=== PATIENT | female | born 2000 | race Caucasian/White ===

== ENCOUNTER 2021-06-12 17:36 | Emergency (ER) | payer OTHER ==
[2021-06-12] MEDS ORDERED: Zofran 4 MG/2 ML VIAL IV ONE (19:42)
[2021-06-12] MEDS ORDERED: Sodium Chloride 0.9% 1000 ML 0 ML ONE (19:58)
[2021-06-12] MEDS ORDERED: Zofran 4 MG/2 ML VIAL ONE (19:58)
[2021-06-12] MEDS ORDERED: Dextrose 5% -0.45 NaCl 1000 ML 1,000 ML IV SCH (20:00)
[2021-06-12] MEDS ORDERED: Dextrose 5% -0.45 NaCl 1000 ML 1,000 ML IV ONE (20:02)
[2021-06-12 20:32] LABS: Appearance CLOUDY (CLEAR); Bacteria FEW /HPF (NEGATIVE); Bilirubin NEGATIVE (NEGATIVE); Blood NEGATIVE Ery/ul (0-5); Epithelial Cells MANY /HPF (FEW); Glucose NEGATIVE (NEGATIVE); Ketones MODERATE (NEGATIVE); Leukocyte Esterase SMALL (NEGATIVE); Mucus MODERATE /HPF (NEGATIVE); Nitrite NEGATIVE (NEGATIVE); Protein,Urine Dip 30 (Negative); Specific Gravity 1.025 (1.005-1.025); Urobilinogen NEGATIVE mg/dL (0-1); WBC 26-50 /HPF (0-5)
[2021-06-12 20:34] LABS: Basophil (Absolute #) 0.01 (0-0.4); Eosinophil (Absolute #) 0 (0-0.5); Hematocrit 36.7 % (35-47); Hemoglobin 12.4 gm/dl (12.0-16.0); Lymphocyte (Absolute #) 0.71 (1.0-4.6); Lymphocytes % 6.1 % (24.0-44.0); Mean Cell Volume 89.1 fl (78-100); Mean Corpuscular Hemoglobin 30.1 pg (26-32); Mean Corpuscular Hgb Concent. 33.8 g/dl (32-36); Mean Platelet Volume 10.1 fl (7.5-11.0); Monocyte (Absolute #) 0.45 (0.0-1.3); Monocytes % 3.9 % (0.0-12.0); Neutrophil % 89.9 % (36.0-66.0); Platelet Count 235 K/mm3 (150-450); Red Blood Count 4.12 M/mm3 (4.1-5.4); Red Cell Distribution Width 13.4 % (11.5-14.0); White Blood Count 11.6 K/mm3 (4.0-10.5)
[2021-06-12 20:49] LABS: ALBUMIN 3.8 g/dL (3.5-5.0); ALKALINE PHOSPHATASE 75 U/L (38-126); ANION GAP 13.9 MEQ/L (5-15); BLOOD UREA NITROGEN 11 mg/dL (7-17); CHLORIDE 103 mmol/L (98-107); Calcium 8.6 mg/dL (8.4-10.2); Carbon Dioxide 20 mmol/L (22-30); Creatinine 1 0.54 mg/dL (0.52-1.04); EST GLOMERULAR FILTRATION RATE > 60.0 ML/MIN; Glucose 81 mg/dL (74-106); SGOT/AST 21 U/L (14-36); SGPT/ALT 14 U/L (0-35); SODIUM 133 mmol/L (137-145); Total Protein 6.6 g/dL (6.3-8.2)
[2021-06-12] MEDS ORDERED: Macrobid 100MG Capsule PO ONE (21:07)
--- NOTE | 2021-06-12 21:20 | ERPHSYRPT ---
- History of Present Illness Time Seen by Provider: 06/12/21 18:10 Source: patient Exam Limitations: no limitations Patient Subjective Stated Complaint: Vomiting 18 weeks Triage Nursing Assessment: Patient ambulated back to ED and transferred self to bed. Patient A+O x3. Patient's skin pink, warm and dry. Patient states she is 18 weeks and has been vomiting since 0700 and unable to keep anything down. Patient denies pain or discomfort. Physician History: Patient is a 20-year-old female presents to our ED for evaluation of nausea and vomiting. Patient is currently 18 weeks . Patient states she has been feeling nauseous since this morning at 7 AM. Patient took Zofran at 4 PM. Patient states it did not help. No abdominal pain. No pelvic pain. No vaginal discharge. No fever. No diarrhea. No rash. Symptoms are mild to moderate in intensity. No specific worsening improving factors. Patient denies history of the same. Patient voices no other complaints or concerns at this time. Timing/Duration: today Severity: moderate Modifying Factors: Improves With: nothing Associated Symptoms: denies symptoms, No abdominal pain, No shortness of breath, No cough, No headaches, No loss of appetite, No syncope, No seizure Allergies/Adverse Reactions: No Known Drug Allergies Allergy (Unverified 06/12/21 18:02) Home Medications: Pnv No.95/Ferrous Fum/Folic AC [ Caplet] 1 tab PO DAILY 06/12/21 [History] Hx Influenza Vaccination/Date Given: No Hx Pneumococcal Vaccination/Date Given: No Immunizations Up to Date: Yes Travel Risk - International Travel Have you traveled outside of the country in past 3 weeks: No - Coronavirus Screening Are you exhibiting any of the following symptoms?: No Close contact with a COVID-19 positive Pt in past 14-21 Days: No - Vaccine Status Have you recieved a Covid-19 vaccination: No - Review of Systems Constitutional: No Symptoms, No Fever, No Chills Eyes: No Symptoms Ears, Nose, & Throat: No Symptoms Respiratory: No Symptoms, No Cough, No Dyspnea Cardiac: No Symptoms, No Chest Pain, No Edema, No Syncope Abdominal/Gastrointestinal: No Symptoms, No Abdominal Pain, No Nausea, No Vomiting, No Diarrhea Genitourinary Symptoms: No Symptoms, No Dysuria Musculoskeletal: No Symptoms, No Back Pain, No Neck Pain Skin: No Symptoms, No Rash Neurological: No Symptoms, No Dizziness, No Focal Weakness, No Sensory Changes Psychological: No Symptoms Endocrine: No Symptoms Hematologic/Lymphatic: No Symptoms Immunological/Allergic: No Symptoms All Other Systems: Reviewed and Negative - Past Medical History Pertinent Past Medical History: No Neurological History: No Pertinent History ENT History: No Pertinent History Cardiac History: No Pertinent History Respiratory History: No Pertinent History Endocrine Medical History: No Pertinent History Musculoskeletal History: No Pertinent History GI Medical History: No Pertinent History History: No Pertinent History Psycho-Social History: No Pertinent History Female Reproductive Disorders: No Pertinent History - Past Surgical History Past Surgical History: No Neuro Surgical History: No Pertinent History Cardiac: No Pertinent History Respiratory: No Pertinent History Gastrointestinal: No Pertinent History Genitourinary: No Pertinent History Musculoskeletal: No Pertinent History Female Surgical History: No Pertinent History - Social History Smoking Status: Never smoker Exposure to second hand smoke: Yes Drug Use: none Patient Lives Alone: No - Female History Hx Last Menstrual Period: end december Hx Now: Yes Expected Date of Delivery: 11/13/21 - Nursing Vital Signs Nursing Vital Signs: Initial Vital Signs Temperature 97.2 F 06/12/21 18:04 Pulse Rate 117 H 06/12/21 18:04 Respiratory Rate 18 06/12/21 18:04 Blood Pressure 121/87 06/12/21 18:04 O2 Sat by Pulse Oximetry 97 06/12/21 18:04 Pain Scale Pain Intensity 0 - Physical Exam General Appearance: no apparent distress, alert Eye Exam: PERRL/EOMI, eyes nml inspection Ears, Nose, Throat Exam: normal ENT inspection, TMs normal, pharynx normal, moist mucous membranes Neck Exam: normal inspection, non-tender, supple, full range of motion Respiratory Exam: normal breath sounds, lungs clear, airway intact, No respiratory distress Cardiovascular Exam: regular rate/rhythm, normal heart sounds, normal peripheral pulses Gastrointestinal/Abdomen Exam: soft, normal bowel sounds, No tenderness, No mass Back Exam: normal inspection, normal range of motion, No CVA tenderness, No vertebral tenderness Extremity Exam: normal inspection, normal range of motion, pelvis stable Neurologic Exam: alert, oriented x 3, cooperative, normal mood/affect, nml cerebellar function, nml station & gait, sensation nml, No motor deficits Skin Exam: normal color, warm, dry, No rash Lymphatic Exam: No adenopathy SpO2 Interpretation: normal SpO2: 99 O2 Delivery: Room Air - Course Nursing assessment & vital signs reviewed: Yes Ordered Tests: Active Orders 24 hr Category Date Time Status IV Insertion STAT Care 06/12/21 19:42 Active CBC W DIFF Stat Lab 06/12/21 20:05 Completed CMP Stat Lab 06/12/21 20:05 Completed CULTURE,URINE Stat Lab 06/12/21 19:43 Received TROPONIN Q3H Lab 06/12/21 20:05 Completed TROPONIN Q3H Lab 06/12/21 22:45 Ordered TROPONIN Q3H Lab 06/13/21 01:45 Ordered TROPONIN Q3H Lab 06/13/21 04:45 Ordered TROPONIN Q3H Lab 06/13/21 07:45 Ordered UA W/RFX UR CULTURE Stat Lab 06/12/21 19:43 Completed Medication Summary Generic Name Dose Route Start Last Admin Trade Name Freq PRN Reason Stop Dose Admin Dextrose/Sodium Chloride 1,000 mls @ 100 mls/hr 06/12/21 20:00 06/12/21 20:02 Dextrose 5% -0.45 Nacl 1000 Ml IV 07/12/21 19:59 100 mls/hr .Q10H MACHO Administration Discontinued Medications Generic Name Dose Route Start Last Admin Trade Name Freq PRN Reason Stop Dose Admin Sodium Chloride Confirm 06/12/21 19:58 Sodium Chloride 0.9% 1000 Ml Administered 06/12/21 19:59 Dose 1,000 mls @ ud .ROUTE .STK-MED ONE Nitrofurantoin Macrocrystals 100 mg 06/12/21 21:07 Nitrofurantoin Macro 100 Mg Capsule PO 06/12/21 21:08 STAT ONE Ondansetron HCl 4 mg 06/12/21 19:42 06/12/21 20:00 Ondansetron Hcl 4 Mg/2 Ml Vial IV 06/12/21 19:43 4 mg STAT ONE Administration Ondansetron HCl Confirm 06/12/21 19:58 Ondansetron Hcl 4 Mg/2 Ml Vial Administered 06/12/21 19:59 Dose 4 mg .ROUTE .STK-MED ONE Lab/Rad Data: Laboratory Result Diagrams 06/12/21 20:05 06/12/21 20:05 Laboratory Results 06/12/21 06/12/21 06/12/21 Range/Units 20:05 20:05 20:05 WBC 11.6 H (4.0-10.5) K/mm3 RBC 4.12 (4.1-5.4) M/mm3 Hgb 12.4 (12.0-16.0) gm/dl Hct 36.7 (35-47) % MCV 89.1 (78-100) fl MCH 30.1 (26-32) pg MCHC 33.8 (32-36) g/dl RDW 13.4 (11.5-14.0) % Plt Count 235 (150-450) K/mm3 MPV 10.1 (7.5-11.0) fl Gran % 89.9 H (36.0-66.0) % Eos # (Auto) 0 (0-0.5) Absolute Lymphs (auto) 0.71 L (1.0-4.6) Absolute Monos (auto) 0.45 (0.0-1.3) Lymphocytes % 6.1 L (24.0-44.0) % Monocytes % 3.9 (0.0-12.0) % Eosinophils % 0.0 (0.00-5.0) % Basophils % 0.1 (0.0-0.4) % Absolute Granulocytes 10.40 H (1.4-6.9) Basophils # 0.01 (0-0.4) Sodium 133 L (137-145) mmol/L Potassium 4.0 (3.5-5.1) mmol/L Chloride 103 (98-107) mmol/L Carbon Dioxide 20 L (22-30) mmol/L Anion Gap 13.9 (5-15) MEQ/L BUN 11 (7-17) mg/dL Creatinine 0.54 (0.52-1.04) mg/dL Estimated GFR > 60.0 ML/MIN Glucose 81 (74-106) mg/dL Calcium 8.6 (8.4-10.2) mg/dL Total Bilirubin 0.70 (0.2-1.3) mg/dL AST 21 (14-36) U/L ALT 14 (0-35) U/L Alkaline Phosphatase 75 (38-126) U/L Troponin I < 0.012 (0.000-0.034) ng/mL Serum Total Protein 6.6 (6.3-8.2) g/dL Albumin 3.8 (3.5-5.0) g/dL Urine Color (YELLOW) Urine Appearance (CLEAR) Urine pH (5-6) Ur Specific [place] (1.005-1.025) Urine Protein (Negative) Urine Ketones (NEGATIVE) Urine Blood (0-5) Tyree/ul Urine Nitrite (NEGATIVE) Urine Bilirubin (NEGATIVE) Urine Urobilinogen (0-1) mg/dL Ur Leukocyte Esterase (NEGATIVE) Urine WBC (Auto) (0-5) /HPF Urine RBC (Auto) (0-2) /HPF U Epithel Cells (Auto) (FEW) /HPF Urine Bacteria (Auto) (NEGATIVE) /HPF Urine Mucus (Auto) (NEGATIVE) /HPF Urine Culture Reflexed (NO) Urine Glucose (NEGATIVE) mg/dL 06/12/21 Range/Units 19:43 WBC (4.0-10.5) K/mm3 RBC (4.1-5.4) M/mm3 Hgb (12.0-16.0) gm/dl Hct (35-47) % MCV (78-100) fl MCH (26-32) pg MCHC (32-36) g/dl RDW (11.5-14.0) % Plt Count (150-450) K/mm3 MPV (7.5-11.0) fl Gran % (36.0-66.0) % Eos # (Auto) (0-0.5) Absolute Lymphs (auto) (1.0-4.6) Absolute Monos (auto) (0.0-1.3) Lymphocytes % (24.0-44.0) % Monocytes % (0.0-12.0) % Eosinophils % (0.00-5.0) % Basophils % (0.0-0.4) % Absolute Granulocytes (1.4-6.9) Basophils # (0-0.4) Sodium (137-145) mmol/L Potassium (3.5-5.1) mmol/L Chloride (98-107) mmol/L Carbon Dioxide (22-30) mmol/L Anion Gap (5-15) MEQ/L BUN (7-17) mg/dL Creatinine (0.52-1.04) mg/dL Estimated GFR ML/MIN Glucose (74-106) mg/dL Calcium (8.4-10.2) mg/dL Total Bilirubin (0.2-1.3) mg/dL AST (14-36) U/L ALT (0-35) U/L Alkaline Phosphatase (38-126) U/L Troponin I (0.000-0.034) ng/mL Serum Total Protein (6.3-8.2) g/dL Albumin (3.5-5.0) g/dL Urine Color YAO (YELLOW) Urine Appearance CLOUDY (CLEAR) Urine pH 5.0 (5-6) Ur Specific [place] 1.025 (1.005-1.025) Urine Protein 30 (Negative) Urine Ketones MODERATE (NEGATIVE) Urine Blood NEGATIVE (0-5) Tyree/ul Urine Nitrite NEGATIVE (NEGATIVE) Urine Bilirubin NEGATIVE (NEGATIVE) Urine Urobilinogen NEGATIVE (0-1) mg/dL Ur Leukocyte Esterase SMALL (NEGATIVE) Urine WBC (Auto) 26-50 (0-5) /HPF Urine RBC (Auto) 3-5 (0-2) /HPF U Epithel Cells (Auto) MANY (FEW) /HPF Urine Bacteria (Auto) FEW (NEGATIVE) /HPF Urine Mucus (Auto) MODERATE (NEGATIVE) /HPF Urine Culture Reflexed YES (NO) Urine Glucose NEGATIVE (NEGATIVE) mg/dL - Progress Progress: improved Progress Note: Patient reassessed. She feels well. Patient has an appetite. She tolerated p.o. Nausea resolved. Work-up reveals a urinary tract infection. Patient received a dose of Macrobid in our ED. A prescription for the same forwarded to patient's pharmacy. Dr. Harris was notified of our patient visit. He has no further recommendations. Patient agrees to follow-up with Dr. Harris within 48 hours for reevaluation. Portions of this note were created with voice recognition technology. There may be grammatical, spelling, punctuation or sound alike errors 06/12/21 21:21 Discussed with DrRupali: Alexandre Will see patient in: office Counseled pt/family regarding: lab results, diagnosis, need for follow-up - Departure Departure Disposition: Home Clinical Impression: Nausea/vomiting in , Urinary tract infection Condition: Stable Critical Care Time: No Referrals: DOCTOR,NO FAMILY [Primary Care Provider] - Follow up/PCP as directed SHANNA HARRIS DO [Family Provider] - Follow up/PCP as directed Additional Instructions: Discharge/Care Plan BRAYDON JUSTIN was seen on 06/12/21 in the Emergency Room. The patient was counseled regarding Diagnosis,Lab results, Imaging studies, need for follow up and when to return to the Emergency Room. Prescriptions given: Discharge Note I have spoken with the patient and/or caregivers. I have explained the patient's condition, diagnosis and treatment plan based on the information available to me at this time. I have answered the patient's and/or caregiver's questions and addressed any concerns. The patient and/or caregivers have as good understanding of the patient's diagnosis, condition and treatment plan as can be expected at this point. The vital signs have been stable. The patient's condition is stable and appropriate for discharge from the emergency department. The patient will pursue further outpatient evaluation with the primary care physician or other designated or consulting physician as outlined in the dis charge instructions. The patient and/or caregivers are agreeable to this plan of care and follow-up instructions have been explained in detail. The patient and/or caregivers have received these instruction. The patient/and or caregivers are aware that any significant change in condition or worsening of symptoms should prompt an immediate return to this or the closest emergency department or call 911. Prescriptions: Nitrofurantoin Macro 100 mg [Macrobid 100MG Capsule] 100 mg PO BID 7 Days #14 cap
[2021-06-12 21:30] VITALS: BP 108/57; PULSE 87
[2021-06-12 21:31] VITALS: O2SAT 99
[2021-06-12] MEDS ORDERED: Macrobid 100MG Capsule ONE (21:35)
== END 2021-06-12 21:47 | disposition home or self-care (01) ==
LOC: ED 17:36
DX: O21.9 Vomiting of pregnancy, unspecified (principal); O23.42 Unspecified infection of urinary tract in pregnancy, second trimester; N39.0 Urinary tract infection, site not specified; Z3A.18 18 weeks gestation of pregnancy
CPT/HCPCS: 36000; 36415; 80053; 81001; 84484; 85025; 87086; 96374; 99284; J2405; A9270-GY

== ENCOUNTER 2021-11-01 15:40 | Inpatient (IN) | payer OTHER ==
[2021-11-01] MEDS: CYTOTEC PO SCH ×3 (19:10→23:24)
[2021-11-01 19:25] LABS: Absolute Neutrophil Ct (ANC) 9.02 x10^3/uL (1.4-6.9); Basophil (Absolute #) 0.06 x10^3/uL (0-0.4); Eosinophil (Absolute #) 0 x10^3/uL (0-0.5); Hematocrit 35.8 % (35-47); Hemoglobin 12.2 g/dL (12.0-16.0); Lymphocyte (Absolute #) 2.52 x10^3/uL (1.0-4.6); Mean Cell Volume 89.1 fL (78-100); Mean Corpuscular Hemoglobin 30.3 pg (26-32); Mean Corpuscular Hgb Concent. 34.1 g/dL (32-36); Monocyte (Absolute #) 0.87 x10^3/uL (0.0-1.3); Monocytes % 6.9 % (0.0-12.0); Neutrophil % 71.3 % (36.0-66.0); Platelet Count 201 x10^3/uL (150-450); Red Blood Count 4.02 x10^6/uL (4.1-5.4); Red Cell Distribution Width 13.1 % (11.5-14.0); White Blood Count 12.6 x10^3/uL (4.0-10.5)
[2021-11-01] MEDS ORDERED: PITOCIN 30 UNITS/ LR 500 ML 30 UNITS/500 ML PLAST..BAG IV SCH (19:30)
[2021-11-01 20:00] LABS: ABO TYPING O; Antibody Screen NEGATIVE (NEGATIVE); RH TYPING POSITIVE
[2021-11-01 20:05] LABS: Amphetamine,Urine NEGATIVE (NEGATIVE); Barbiturate,Urine NEGATIVE (NEGATIVE); Benzodiazepine,Urine NEGATIVE (NEGATIVE); Cocaine,Urine NEGATIVE (NEGATIVE); Methadone,Urine NEGATIVE (NEGATIVE); Opiate,Urine NEGATIVE (NEGATIVE); PCP,Urine NEGATIVE (NEGATIVE); THC,Urine NEGATIVE (NEGATIVE)
[2021-11-01 20:16] LABS: Creatinine, Urine Random 95.2 mg/dl; Protein Creatinine Ratio, Ran. 0.05 mg/mg (0.0-0.15)
[2021-11-01] MEDS: Lactated Ringers 1,000 ML IV SCH (22:08)
[2021-11-01 22:19] LABS: Amphetamine,Urine NEGATIVE (NEGATIVE); Barbiturate,Urine NEGATIVE (NEGATIVE); Benzodiazepine,Urine NEGATIVE (NEGATIVE); Cocaine,Urine NEGATIVE (NEGATIVE); Methadone,Urine NEGATIVE (NEGATIVE); Opiate,Urine NEGATIVE (NEGATIVE); PCP,Urine NEGATIVE (NEGATIVE); THC,Urine NEGATIVE (NEGATIVE)
[2021-11-01] MEDS ORDERED: MAALOX ES 30 ML UNIT DOSE PO PRN (22:31)
[2021-11-01] MEDS ORDERED: TYLENOL EXTRA STRENGTH 500 MG PO PRN (22:34)
[2021-11-01] MEDS ORDERED: Zofran 4 MG/2 ML VIAL IV PRN (22:34)
[2021-11-02] MEDS: CYTOTEC PO SCH ×3 (01:10→05:55)
[2021-11-02] MEDS: Lactated Ringers 1,000 ML IV SCH (02:24)
[2021-11-02] MEDS: STADOL 2 MG IV PRN ×2 (02:25→05:39)
[2021-11-02] MEDS ORDERED: Lactated Ringers 1,000 ML IV ONE (06:00)
[2021-11-02] MEDS ORDERED: FENTANYL 2 MCG-BUPIV 0.125%-NS 250 ML Epidur 250 ML EPIDURAL SCH (07:00)
[2021-11-02] MEDS ORDERED: Ephedrine Sulfate 50 MG/ML IV PRN (07:00)
[2021-11-02] MEDS ORDERED: CYTOTEC PO SCH (07:15)
[2021-11-02] MEDS ORDERED: BRETHINE 1 MG/ML SQ PRN (08:00)
[2021-11-02] MEDS ORDERED: XYLOCAINE 1% HCL 20 ML MDV IJ PRN (08:00)
[2021-11-02] MEDS ORDERED: PITOCIN 30 UNITS/ LR 500 ML 30 UNITS/500 ML PLAST..BAG IV SCH (08:00)
[2021-11-02 13:23] LABS: Epithelial Cells RARE /HPF (FEW); Mucus SLIGHT /HPF (NEGATIVE); RBC 0-2 /HPF (0-2); WBC 0-2 /HPF (0-5)
[2021-11-02 13:25] LABS: Appearance SLIGHTLY CLOUDY (CLEAR); Bilirubin NEGATIVE (NEGATIVE); Glucose NEGATIVE (NEGATIVE); Ketones >=160 (NEGATIVE); Nitrite NEGATIVE (NEGATIVE); Protein,Urine Dip NEGATIVE (Negative); RBC NEGATIVE Ery/ul (0-5); Specific Gravity 1.025 (1.005-1.025); Urine Cultured Indicated? NO; Urobilinogen 0.2 mg/dL (0-1)
[2021-11-02 13:26] LABS: Dipstick done @ ? MAIN LAB
[2021-11-02] MEDS ORDERED: Anucort-HC SUPPOSITORY PR PRN (14:03)
[2021-11-02] MEDS ORDERED: TUCKS TP PRN (14:03)
[2021-11-02] MEDS ORDERED: Ambien 10 MG PO PRN (14:03)
[2021-11-02] MEDS ORDERED: LANSINOH 40 GM TOP PRN (14:03)
[2021-11-02] MEDS ORDERED: CORTISONE 1% CREAM TP PRN (14:03)
[2021-11-02] MEDS ORDERED: Mylicon 80MG PO PRN (14:03)
[2021-11-02] MEDS ORDERED: Dulcolax 10 MG SUPP PR PRN (14:03)
[2021-11-02] MEDS ORDERED: NORCO 5/325 MG PO PRN (14:03)
[2021-11-02] MEDS ORDERED: Dermoplast Spray TP PRN (14:03)
[2021-11-02] MEDS ORDERED: Adacel Vial IM ONE (18:00)
[2021-11-02] MEDS: TYLENOL EXTRA STRENGTH 500 MG PO PRN (23:47)
[2021-11-02] MEDS: Docusate Sodium 100 MG PO SCH (23:53)
[2021-11-03 04:53] LABS: Absolute Neutrophil Ct (ANC) 13.86 x10^3/uL (1.4-6.9); Eosinophil (Absolute #) 0 x10^3/uL (0-0.5); Hemoglobin 12.2 g/dL (12.0-16.0); Lymphocyte (Absolute #) 3.21 x10^3/uL (1.0-4.6); Lymphocytes % 17.2 % (24.0-44.0); Mean Cell Volume 90.7 fL (78-100); Mean Corpuscular Hemoglobin 30.7 pg (26-32); Mean Corpuscular Hgb Concent. 33.9 g/dL (32-36); Mean Platelet Volume 11.1 fL (7.5-11.0); Neutrophil % 74.1 % (36.0-66.0); Platelet Count 197 x10^3/uL (150-450); Red Blood Count 3.97 x10^6/uL (4.1-5.4); Red Cell Distribution Width 13.4 % (11.5-14.0); White Blood Count 18.7 x10^3/uL (4.0-10.5)
--- NOTE | 2021-11-03 07:34 | PCM.HP ---
History of Present Illness - Chief Complaint Chief Complaint: Gest HTN History of Present Illness: is a 21 year old female. 21 yo iup 38 3/7 wks gestation admitted to labor delivery for induction secondary to noted gestational htn noted diagnosed in office with bp 145/88, 150/88 on multiple occasions. denies spicer or visual disturbance. states irregular uterine contx. Medications & Allergies Home Medications: Home Medication List Pnv No.95/Ferrous Fum/Folic AC [ Caplet] 1 tab PO DAILY 06/12/21 [History Confirmed 11/01/21] Allergies/Adverse Reactions: Allergies Allergy/AdvReac Type Severity Reaction Status Date / Time No Known Drug Allergies Allergy Unverified 06/12/21 18:02 - Past Medical History Past Medical History: Yes Neurological History: Migraines ENT History: No Pertinent History Cardiac History: No Pertinent History Respiratory History: No Pertinent History Endocrine Medical History: No Pertinent History Musculoskelatal History: No Pertinent History GI Medical History: No Pertinent History History: No Pertinent History Pyscho-Social History: No Pertinent History Reproductive Disorders: No Pertinent History - Female History Hx Last Menstrual Period: 01/26/22 Are you now?: Yes Expected Date of Delivery: 11/13/21 - Past Surgical History Past Surgical History: Yes (Ingrown toe nail. wisdom teeth) Neuro Surgical History: No Pertinent History Cardiac History: No Pertinent History Respiratory Surgery: No Pertinent History GI Surgical History: No Pertinent History Genitourinary Surgical Hx: No Pertinent History Musculskeletal Surgical Hx: No Pertinent History Female Surgical History: No Pertinent History Other Surgical History: ingrown toe nail and wisdom teeth extraction - Social History Smoking Status: Never smoker Exposure to second hand smoke: No Alcohol: None Drug Use: none - Physical Exam Vital Signs: Vital Signs - 24 hr Temp Pulse Resp BP BP Pulse Ox 11/03/21 02:00 98.3 F 82 18 101/54 97 11/03/21 01:44 93 H 11/02/21 20:00 98.4 F 93 H 18 118/73 97 11/02/21 19:44 98.4 F 93 H 18 118/73 97 11/02/21 16:00 97.2 F 88 18 115/72 97 11/02/21 15:00 97.2 F 78 18 119/59 97 11/02/21 14:45 97.2 F 78 18 119/59 97 11/02/21 14:30 97.2 F 18 100/55 99 11/02/21 14:15 97.2 F 82 18 122/59 99 11/02/21 14:00 97.2 F 96 H 18 127/63 99 11/02/21 13:45 97.2 F 78 18 97 11/02/21 13:30 97.2 F 126 H 18 129/61 97 11/02/21 13:15 97.2 F 110 H 18 134/60 97 11/02/21 13:00 97.2 F 101 H 18 124/73 97 11/02/21 12:45 97.4 F 100 H 18 124/87 98 11/02/21 12:30 97.4 F 109 H 18 123/67 98 11/02/21 12:15 97.4 F 93 H 18 124/59 98 11/02/21 12:00 97.4 F 98 H 18 128/56 98 11/02/21 11:45 97.4 F 98 H 18 128/56 98 11/02/21 11:30 97.4 F 93 H 18 151/69 98 11/02/21 11:15 97.4 F 58 L 18 112/58 98 11/02/21 11:00 97.4 F 58 L 18 112/58 98 11/02/21 10:30 97.4 F 78 18 110/64 98 11/02/21 10:00 97.4 F 68 18 102/68 98 11/02/21 09:30 97.4 F 78 18 111/64 98 11/02/21 09:00 97.4 F 101 H 18 111/65 98 11/02/21 08:30 97.4 F 75 18 112/72 98 11/02/21 08:00 97.4 F 86 18 116/67 116/67 98 11/02/21 07:45 97.4 F 125 H 18 123/65 98 Neurologic Exam: alert Extremity Exam: swelling, other (b/l lower extremity edema 3/4 b/l) Results - Labs Lab/Micro Results: Lab Results-Last 24 Hours 11/02/21 11/03/21 Range/Units 10:00 04:12 WBC 18.7 H (4.0-10.5) x10^3/uL RBC 3.97 L (4.1-5.4) x10^6/uL Hgb 12.2 (12.0-16.0) g/dL Hct 36.0 (35-47) % MCV 90.7 (78-100) fL MCH 30.7 (26-32) pg MCHC 33.9 (32-36) g/dL RDW 13.4 (11.5-14.0) % Plt Count 197 (150-450) x10^3/uL MPV 11.1 H (7.5-11.0) fL Gran % 74.1 H (36.0-66.0) % Immature Gran % (Auto) 1.2 H (0.00-0.4) % Nucleat RBC Rel Count 0.0 (0.00-0.1) % Eos # (Auto) 0 (0-0.5) x10^3/uL Immature Gran # (Auto) 0.23 H (0.00-0.03) x10^3u/L Absolute Lymphs (auto) 3.21 (1.0-4.6) x10^3/uL Absolute Monos (auto) 1.30 (0.0-1.3) x10^3/uL Absolute Nucleated RBC 0.00 (0.00-0.01) x10^3u/L Lymphocytes % 17.2 L (24.0-44.0) % Monocytes % 7.0 (0.0-12.0) % Eosinophils % 0.0 (0.00-5.0) % Basophils % 0.5 (0.0-0.4) % Absolute Granulocytes 13.86 H (1.4-6.9) x10^3/uL Basophils # 0.10 (0-0.4) x10^3/uL Urinalys Dipstick Clnc MAIN LAB Urine Color YELLOW (YELLOW) Urine Appearance SLIGHTLY CLOUDY (CLEAR) Urine pH 6.0 (5-6) Ur Specific [place] 1.025 (1.005-1.025) POC Urine Protein Conf NEGATIVE (Negative) Urine Ketones >=160 (NEGATIVE) Urine Nitrite NEGATIVE (NEGATIVE) Urine Bilirubin NEGATIVE (NEGATIVE) Urine Urobilinogen 0.2 (0-1) mg/dL Urine Leukocytes NEGATIVE (NEGATIVE) Urine WBC (Auto) 0-2 (0-5) /HPF Urine RBC (Auto) 0-2 (0-2) /HPF U Epithel Cells (Auto) RARE (FEW) /HPF Urine RBC NEGATIVE (0-5) Tyree/ul Urine Mucus (Auto) SLIGHT (NEGATIVE) /HPF Ur Culture Indicated? NO Urine Glucose NEGATIVE (NEGATIVE) mg/dL Assessment/Plan (1) Gestational HTN Current Visit: Yes Status: Acute Code(s): O13.9 - GESTATIONAL HTN W/O SIGNIFICANT PROTEINURIA, UNSP TRIMESTER (2) Vaginal delivery Current Visit: Yes Status: Acute Code(s): O80 - ENCOUNTER FOR FULL-TERM UNCOMPLICATED DELIVERY
[2021-11-03 09:19] LABS: HBsAg Screen Negative (Negative)
[2021-11-03 10:15] LABS: HBsAg Screen Negative (Negative); HCV Ab <0.1 s/co ratio (0.0-0.9); Hep A Ab, IgM Negative (Negative); Hep B Core Ab, IgM Negative (Negative)
[2021-11-03] MEDS: Docusate Sodium 100 MG PO SCH ×2 (10:39→21:18)
[2021-11-03] MEDS: FERREX 150 PO SCH (10:39)
[2021-11-03] MEDS: MOTRIN 400 MG PO PRN ×2 (10:39→19:27)
[2021-11-03] MEDS: TYLENOL EXTRA STRENGTH 500 MG PO PRN (15:15)
[2021-11-04] MEDS: MOTRIN 400 MG PO PRN ×2 (09:02→15:59)
[2021-11-04] MEDS: Docusate Sodium 100 MG PO SCH (09:02)
[2021-11-04] MEDS: FERREX 150 PO SCH (09:02)
--- NOTE | 2021-11-04 10:26 | PCM.NOTE ---
Date and Time: 11/04/21 1025 Subjective Assessment: ppd 2 sp pt resting in bed and doing well able to ambulate and tolerate diet. vss afebrile abd; soft uterus; firm lochia; mild hgb; 12 a/p sp ppd 2 dc home today fu office 3 wks OBJECTIVE DATA Vital Signs: Vital Signs - 24 hr Temp Pulse Resp BP Pulse Ox 11/04/21 03:00 97.6 F 62 18 122/59 98 11/03/21 20:00 97.8 F 71 20 112/63 98 11/03/21 14:00 70 20 122/70 Pain Assessment - Last Documented Pain Intensity [Anterior/ 0 Posterior] Pain Intensity [Bilateral 10 Anterior/Posterior] Pain Intensity 4 Pain Scale Used 0-10 Pain Scale Intake and Output: Intake & Output 11/01/21 11/02/21 11/03/21 11/04/21 11:59 11:59 11:59 11:59 Intake Total 480 2100 Balance 480 2100 Weight 90.9 kg Lab Results: Lab Results-Last 24 Hours 11/01/21 Range/Units 18:50 Hepatitis A IgM Ab Negative (Negative) Hep Bs Antigen Negative (Negative) Hep B Core IgM Ab Negative (Negative) Hep C Ab Signal/Cutoff <0.1 (0.0-0.9) s/co ratio Hepatitis C Interp Comment (.) Assessment/Plan (1) Gestational HTN Current Visit: Yes Status: Acute Code(s): O13.9 - GESTATIONAL HTN W/O SIGNIFICANT PROTEINURIA, UNSP TRIMESTER (2) Vaginal delivery Current Visit: Yes Status: Acute Code(s): O80 - ENCOUNTER FOR FULL-TERM UNCOMPLICATED DELIVERY
--- NOTE | 2021-11-04 10:28 | PCM.DS ---
Discharge Summary Date of Admission: 11/02/21 02:01 Admitting Physician: SHANNA FITZPATRICK DO Consults: Consults on Case 11/02/21 07:00 Notify Anesthesia Provider PRN 11/02/21 14:04 Notify Physician ROUTINE Primary Care Provider: ANNALISA MARQUEZ Allergies Allergies No Known Drug Allergies Allergy (Unverified 06/12/21 18:02) Hospital Summary - Hospital Course Hospital Course: pt admitted on november 01 for induction secondary to gestational htn noted in office and was started on oral cytotec and subsequently delivered on november 02 with pitocin without complication via . during period did well able to ambulate and tolerate diet and at this time stable for discharge. pt was advised to fu in office in 3 wks for care. all questions answered to her satisfaction. - Vitals & Intake/Output Vital Signs: Vital Signs Temperature 97.6 F 11/04/21 03:00 Pulse Rate 62 11/04/21 03:00 Respiratory Rate 18 11/04/21 03:00 Blood Pressure 122/59 11/04/21 03:00 O2 Sat by Pulse Oximetry 98 11/04/21 03:00 Intake & Output: Intake & Output 11/01/21 11/02/21 11/03/21 11/04/21 11:59 11:59 11:59 11:59 Intake Total 480 2100 Balance 480 2100 Weight 90.9 kg - Lab Result Diagrams: 11/03/21 04:12 Lab Results-Last 24 Hrs: Lab Results-Last 24 Hours 11/01/21 Range/Units 18:50 Hepatitis A IgM Ab Negative (Negative) Hep Bs Antigen Negative (Negative) Hep B Core IgM Ab Negative (Negative) Hep C Ab Signal/Cutoff <0.1 (0.0-0.9) s/co ratio Hepatitis C Interp Comment (.) Final Diagnosis/Problem List - Final Discharge Diagnosis/Problem (1) Gestational HTN Current Visit: Yes Status: Acute Code(s): O13.9 - GESTATIONAL HTN W/O SIGNIFICANT PROTEINURIA, UNSP TRIMESTER (2) Vaginal delivery Current Visit: Yes Status: Acute Code(s): O80 - ENCOUNTER FOR FULL-TERM UNCOMPLICATED DELIVERY - Discharge Disposition: Home, Self-Care Condition: Stable Prescriptions: No Action Pnv No.95/Ferrous Fum/Folic AC [ Caplet] 1 tab PO DAILY Follow up with: ANNALISA MARQUEZ DO [Primary Care Provider] - SHANNA FITZPATRICK DO [ACTIVE STAFF] - 3 weeks
[2021-11-04 18:59] VITALS: PULSE 68
[2021-11-04 19:03] VITALS: BP 116/73; O2SAT 99
== END 2021-11-04 18:20 | disposition home or self-care (01) | DRG 807 ==
LOC: WHC 15:40 → ICU 17:40 → OB 17:41 → OBSVTOIN 11-02 02:01
PROVIDERS: ADMIT Obstetrics & Gynecology; ATTEND Obstetrics & Gynecology
PROC: 10E0XZZ Delivery of Products of Conception, External Approach (ICD-10-PCS; principal; 2021-11-02)
PROC: 0KQM0ZZ Repair Perineum Muscle, Open Approach (ICD-10-PCS; 2021-11-02)
DX: O13.4 Gestational [pregnancy-induced] hypertension without significant proteinuria, complicating childbirth (principal); Z37.0 Single live birth; O69.81X0 Labor and delivery complicated by cord around neck, without compression, not applicable or unspecified; O70.1 Second degree perineal laceration during delivery; Z3A.38 38 weeks gestation of pregnancy; Z20.828 Contact with and (suspected) exposure to other viral communicable diseases
CPT/HCPCS: 36415; 59409; 59426; 80074; 80307; 81002; 81015; 82570; 84112; 84156; 84550; 85025; 86850; 86900; 86901; 87340; 90471; 90715; G0378; J0595; J2405; J2590; A9270-GY

== ENCOUNTER 2022-06-25 18:34 | Emergency (ER) | payer OTHER ==
[2022-06-25 18:55] VITALS: BP 128/75
--- NOTE | 2022-06-25 19:23 | ERPHSYRPT ---
- History of Present Illness Source: patient Exam Limitations: other (Poor historian) Patient Subjective Stated Complaint: C/O exposure to posion fanny approx one week ago. Patient states she has a posion fanny rash to her back and chest that is very itchy. Triage Nursing Assessment: Patient ambulated back to ER without difficulties. She is alert and oriented. No SOB. Small red, raised, scattered rash noted to lower back. No rash noted to chest at this time. Physician History: 21 yo wf w pruritic rash on R ventral forearm, L flank, and L buttock x 1 week. Pt states that she thinks that she has poison fanny. The rash is pruritic. Pt states that SO and child has a similar rash but less severe. Pt denies fever/cough/coryza/ST/N/V/D. Timing/Duration: other (1 week) Quality: itchy Severity: mild Location: generalized Possible Causes: poison fanny Associated Symptoms: denies symptoms Allergies/Adverse Reactions: No Known Drug Allergies Allergy (Verified 06/25/22 18:41) Home Medications: norethindrone ac-eth estradioL [Microgestin 21 1-20 Tablet] 1 tab PO DAILY 06/25/22 [History] Hx Tetanus, Diphtheria Vaccination/Date Given: Yes Hx Influenza Vaccination/Date Given: No Hx Pneumococcal Vaccination/Date Given: No Immunizations Up to Date: Yes Travel Risk - International Travel Have you traveled outside of the country in past 3 weeks: No - Coronavirus Screening Are you exhibiting any of the following symptoms?: No Close contact with a COVID-19 positive Pt in past 14-21 Days: No - Vaccine Status Have you recieved a Covid-19 vaccination: No - Review of Systems Constitutional: No Symptoms Eyes: No Symptoms Ears, Nose, & Throat: No Symptoms Respiratory: No Symptoms Cardiac: No Symptoms Abdominal/Gastrointestinal: No Symptoms Genitourinary Symptoms: No Symptoms Musculoskeletal: No Symptoms Neurological: No Symptoms Psychological: No Symptoms Endocrine: No Symptoms Hematologic/Lymphatic: No Symptoms Immunological/Allergic: No Symptoms - Past Medical History Pertinent Past Medical History: Yes Neurological History: Migraines ENT History: No Pertinent History Cardiac History: No Pertinent History Respiratory History: No Pertinent History Endocrine Medical History: No Pertinent History Musculoskeletal History: No Pertinent History GI Medical History: No Pertinent History History: No Pertinent History Psycho-Social History: No Pertinent History Female Reproductive Disorders: No Pertinent History - Past Surgical History Past Surgical History: Yes (Ingrown toe nail. wisdom teeth) Neuro Surgical History: No Pertinent History Cardiac: No Pertinent History Respiratory: No Pertinent History Gastrointestinal: No Pertinent History Genitourinary: No Pertinent History Musculoskeletal: No Pertinent History Female Surgical History: No Pertinent History Other Surgical History: ingrown toe nail and wisdom teeth extraction - Social History Smoking Status: Never smoker Exposure to second hand smoke: No Drug Use: none Patient Lives Alone: No - Female History Hx Last Menstrual Period: approx one month ago Hx Now: No ( control) - Nursing Vital Signs Nursing Vital Signs: Initial Vital Signs Temperature 98.1 F 06/25/22 18:42 Pulse Rate 78 06/25/22 18:42 Respiratory Rate 17 06/25/22 18:42 Blood Pressure 128/75 06/25/22 18:42 O2 Sat by Pulse Oximetry 98 06/25/22 18:42 Pain Scale Pain Intensity 0 WNL - Physical Exam General Appearance: no apparent distress Eye Exam: PERRL/EOMI, eyes nml inspection Ears, Nose, Throat Exam: normal ENT inspection, TMs normal, pharynx normal, moist mucous membranes Neck Exam: normal inspection, non-tender, supple, full range of motion, No meningismus, No mass, No Brudzinski, No Kernig's Respiratory Exam: normal breath sounds, lungs clear, airway intact Cardiovascular Exam: regular rate/rhythm, normal heart sounds, normal peripheral pulses, capillary refill <2 sec, No murmur Gastrointestinal/Abdomen Exam: soft, normal bowel sounds, No tenderness Back Exam: normal range of motion, No CVA tenderness, No vertebral tenderness Extremity Exam: normal range of motion, No pedal edema, No swelling Neurologic Exam: alert, oriented x 3, cooperative, cyber operator II-XII nml as tested, normal mood/affect, nml cerebellar function, nml station & gait, sensation nml Skin Exam: other (Erythematous rash on R ventral forearm and L buttock which looks like a diffuse staph rash) Lymphatic Exam: No adenopathy SpO2 Interpretation: normal SpO2: 98 O2 Delivery: Room Air - Course Nursing assessment & vital signs reviewed: Yes - Progress Progress Note: 06/25/22 19:23 Nursing note and vital signs reviewed No food or housing insecurities noted Pt is a full code Rash most likely is a diffuse staph rash rather than poison Fanny Pt has access to medical care and meds 06/25/22 20:36 Counseled pt/family regarding: diagnosis, need for follow-up - Departure Departure Disposition: Home Clinical Impression: Staph skin infection Condition: Stable Critical Care Time: No Referrals: ANNALISA MARQUEZ, [Primary Care Provider] - Follow up/PCP as directed Instructions: Cellulitis and Erysipelas (Skin Infections) Additional Instructions: Follow up with your family MD in 1-2 days Start doxycycline twice a day for 1 week Atarax as needed for itching Return to ER for worsening of condition Prescriptions: Hydroxyzine HCl 25 mg [Atarax 25 mg] 25 mg PO QID PRN PRN #14 tablet PRN Reason: Itching Doxycycline Monohydrate 100 mg PO BID #14 cap
[2022-06-25 19:35] VITALS: PULSE 80
[2022-06-25 20:37] VITALS: O2SAT 98
== END 2022-06-25 19:35 | disposition home or self-care (01) ==
LOC: ED 18:34
DX: L00 Staphylococcal scalded skin syndrome (principal); Z28.310 Unvaccinated for COVID-19
CPT/HCPCS: 99281

== ENCOUNTER 2022-12-10 10:11 | Emergency (ER) | payer OTHER ==
[2022-12-10 10:41] VITALS: TEMP 97.8
--- NOTE | 2022-12-10 11:06 | ERPHSYRPT ---
- History of Present Illness Time Seen by Provider: 12/10/22 10:35 Historian: patient, family Exam Limitations: no limitations Patient Subjective Stated Complaint: C/O upper abdominal pain with N/V and diarrhea that started during the night Triage Nursing Assessment: Patient ambulated back to ER. She is alert and oriented. No SOB. No cough. SAHARA SETHI. Physician History: This is a 22-year-old white female patient who presents to the emergency department with several episodes of vomiting and diarrhea that began approxim ately 3 AM this morning. Her son had similar symptoms. The patient states there was exposure to a relative that had similar symptoms 3 days ago. The patient denies cough. Patient denies chest pain. Patient denies shortness of breath. She has generalized abdominal pain with vomiting and diarrhea symptoms. She has not had a fever. She is not breast-feeding. Timing/Duration: today Quality: cramping Abdominal Pain Onset Location: RUQ, LUQ Pain Radiation: no radiation Severity of Pain-Max: moderate Severity of Pain-Current: mild (To moderate) Modifying Factors: Improves With: vomiting Associated Symptoms: diarrhea, loss of appetite, nausea, vomiting Previous symptoms: no prior history Allergies/Adverse Reactions: No Known Drug Allergies Allergy (Verified 12/10/22 10:28) Home Medications: norethindrone ac-eth estradioL [Microgestin 21 1-20 Tablet] 1 tab PO DAILY 06/25/22 [History] Hx Tetanus, Diphtheria Vaccination/Date Given: Yes Hx Influenza Vaccination/Date Given: No Hx Pneumococcal Vaccination/Date Given: No Immunizations Up to Date: Yes Travel Risk - International Travel Have you traveled outside of the country in past 3 weeks: No - Coronavirus Screening Are you exhibiting any of the following symptoms?: Yes Symptoms: Vomiting/Diarrhea Close contact with a COVID-19 positive Pt in past 14-21 Days: No - Vaccine Status Have you recieved a Covid-19 vaccination: No - Review of Systems Constitutional: No Symptoms Eyes: No Symptoms Ears, Nose, & Throat: No Symptoms Respiratory: No Symptoms Cardiac: No Symptoms Abdominal/Gastrointestinal: Abdominal Pain, Nausea, Vomiting, Diarrhea, Appetite Changes Genitourinary Symptoms: No Symptoms Musculoskeletal: No Symptoms Skin: No Symptoms Neurological: No Symptoms Psychological: No Symptoms Endocrine: No Symptoms Hematologic/Lymphatic: No Symptoms Immunological/Allergic: No Symptoms All Other Systems: Reviewed and Negative - Past Medical History Pertinent Past Medical History: Yes Neurological History: Migraines ENT History: No Pertinent History Cardiac History: No Pertinent History Respiratory History: No Pertinent History Endocrine Medical History: No Pertinent History Musculoskeletal History: No Pertinent History GI Medical History: No Pertinent History History: No Pertinent History Psycho-Social History: No Pertinent History Female Reproductive Disorders: No Pertinent History - Past Surgical History Past Surgical History: Yes Neuro Surgical History: No Pertinent History Cardiac: No Pertinent History Respiratory: No Pertinent History Gastrointestinal: No Pertinent History Genitourinary: No Pertinent History Musculoskeletal: No Pertinent History Female Surgical History: No Pertinent History Other Surgical History: ingrown toe nail and wisdom teeth extraction - Social History Smoking Status: Never smoker Exposure to second hand smoke: No Drug Use: none Patient Lives Alone: No - Female History Hx Last Menstrual Period: 3 weeks ago Hx Now: No ( control) - Nursing Vital Signs Nursing Vital Signs: Initial Vital Signs Temperature 97.8 F 12/10/22 10:28 Pulse Rate 109 H 12/10/22 10:28 Respiratory Rate 18 12/10/22 10:28 Blood Pressure 127/83 12/10/22 10:28 O2 Sat by Pulse Oximetry 97 12/10/22 10:28 Pain Scale Pain Intensity 6 - Physical Exam General Appearance: no apparent distress, alert, anxiety Eye Exam: PERRL/EOMI Ears, Nose, Throat Exam: normal ENT inspection, moist mucous membranes Neck Exam: normal inspection, non-tender, supple, full range of motion Respiratory Exam: normal breath sounds, lungs clear, airway intact, No chest te nderness, No respiratory distress Cardiovascular Exam: regular rate/rhythm, normal heart sounds, normal peripheral pulses Gastrointestinal/Abdomen Exam: soft, normal bowel sounds, tenderness (Generalized), No guarding, No pulsatile mass Pelvic Exam: not done Rectal Exam: not done Back Exam: normal inspection, normal range of motion, No CVA tenderness, No vertebral tenderness Extremity Exam: normal inspection, normal range of motion, pelvis stable Neurologic Exam: alert, oriented x 3, cooperative, burr bench hand II-XII nml as tested, normal mood/affect, nml cerebellar function, nml station & gait, sensation nml Skin Exam: normal color, warm, dry Lymphatic Exam: No adenopathy SpO2 Interpretation: normal SpO2: 97 O2 Delivery: Room Air - Course Nursing assessment & vital signs reviewed: Yes Ordered Tests: Active Orders 24 hr Category Date Time Status IV Insertion STAT Care 12/10/22 11:08 Active ABDOMEN AND PELVIS W/0 CONTRAS [CT] Stat Exams 12/10/22 11:08 Completed AMYLASE Stat Lab 12/10/22 11:00 Completed CBC W DIFF Stat Lab 12/10/22 11:00 Completed CMP Stat Lab 12/10/22 11:00 Completed CULTURE,URINE Stat Lab 12/10/22 11:12 Received HCG QUALITATIVE, URINE Stat Lab 12/10/22 11:00 Completed LIPASE Stat Lab 12/10/22 11:00 Completed MONO SCREEN Stat Lab 12/10/22 11:00 Completed UA W/RFX UR CULTURE Stat Lab 12/10/22 11:12 Completed Medication Summary Discontinued Medications Generic Name Dose Route Start Last Admin Trade Name Freq PRN Reason Stop Dose Admin Hydromorphone HCl 1 mg 12/10/22 11:20 12/10/22 11:35 Hydromorphone 1 Mg/1ml Inj IV 12/10/22 11:21 1 mg STAT ONE Administration Hydromorphone HCl Confirm 12/10/22 11:34 Hydromorphone 1 Mg/1ml Inj Administered 12/10/22 11:35 Dose 1 mg .ROUTE .STK-MED ONE Sodium Chloride 1,000 mls @ 999 mls/hr 12/10/22 11:08 12/10/22 12:23 Sodium Chloride 0.9% 1000 Ml IV 12/10/22 12:08 Infused .Q1H1M STA Infusion Sodium Chloride Confirm 12/10/22 11:15 Sodium Chloride 0.9% 1000 Ml Administered 12/10/22 11:16 Dose 1,000 mls @ ud .ROUTE .STK-MED ONE Ondansetron HCl 4 mg 12/10/22 11:08 12/10/22 11:16 Ondansetron Hcl 4 Mg/2 Ml Vial IV 12/10/22 11:09 4 mg STAT ONE Administration Ondansetron HCl Confirm 12/10/22 11:15 Ondansetron Hcl 4 Mg/2 Ml Vial Administered 12/10/22 11:16 Dose 4 mg .ROUTE .STK-MED ONE Lab/Rad Data: Laboratory Result Diagrams 12/10/22 11:00 12/10/22 11:00 Laboratory Results 08/12/10/22 12/10/22 Range/Units 12:03 12:03 11:12 WBC (4.0-10.5) x10^3/uL RBC (4.1-5.4) x10^6/uL Hgb (12.0-16.0) g/dL Hct (35-47) % MCV (78-100) fL MCH (26-32) pg MCHC (32-36) g/dL RDW (11.5-14.0) % Plt Count (150-450) x10^3/uL MPV (7.5-11.0) fL Gran % (36.0-66.0) % Immature Gran % (Auto) (0.00-0.4) % Nucleat RBC Rel Count (0.00-0.1) % Eos # (Auto) (0-0.5) x10^3/uL Immature Gran # (Auto) (0.00-0.03) x10^3u/L Absolute Lymphs (auto) (1.0-4.6) x10^3/uL Absolute Monos (auto) (0.0-1.3) x10^3/uL Absolute Nucleated RBC (0.00-0.01) x10^3u/L Lymphocytes % (24.0-44.0) % Monocytes % (0.0-12.0) % Eosinophils % (0.00-5.0) % Basophils % (0.0-0.4) % Absolute Granulocytes (1.4-6.9) x10^3/uL Basophils # (0-0.4) x10^3/uL Sodium (137-145) mmol/L Potassium (3.5-5.1) mmol/L Chloride (98-107) mmol/L Carbon Dioxide (22-30) mmol/L Anion Gap (5-15) MEQ/L BUN (7-17) mg/dL Creatinine (0.52-1.04) mg/dL Estimated GFR ML/MIN Glucose (74-106) mg/dL Calcium (8.4-10.2) mg/dL Total Bilirubin (0.2-1.3) mg/dL AST (14-36) U/L ALT (0-35) U/L Alkaline Phosphatase (38-126) U/L Serum Total Protein (6.3-8.2) g/dL Albumin (3.5-5.0) g/dL Amylase (30-110) U/L Lipase (23-300) U/L Urine Color Dark Yellow A (Yellow) Urine Appearance Cloudy A (Clear) Urine pH 5.5 (4.6-8.0) Ur Specific [place] >=1.030 A (1.005-1.030) Urine Protein Trace A (Negative) Urine Glucose (UA) Negative (Negative) mg/dL Urine Ketones 40 A (Negative) Urine Blood Small A (Negative) Urine Nitrite Negative (Negative) Urine Bilirubin Negative (Negative) Urine Urobilinogen 0.2 (0.2) mg/dL Ur Leukocyte Esterase Trace A (Negative) U Hyaline Cast (Auto) NONE SEEN (0-2) /LPF Urine Microscopic RBC 6-10 A (0-5) /HPF Urine Microscopic WBC 3-5 (0-5) /HPF Ur Epithelial Cells Moderate A (None Seen) /HPF Urine Bacteria Many A (None Seen) /HPF Urine Culture Reflexed YES (NO) Urine HCG, Qual (NEGATIVE) Monoscreen (NEGATIVE) Influenza Type A Ag NEGATIVE (NEGATIVE) Influenza Type B Ag NEGATIVE (NEGATIVE) RSV (PCR) NEGATIVE (NEGATIVE) SARS-CoV-2 (PCR) NEGATIVE (NEGATIVE) Group A Strep Antibody NOT DETECTED (NEGATIVE) 12/10/22 12/10/22 12/10/22 Range/Units 11:00 11:00 11:00 WBC (4.0-10.5) x10^3/uL RBC (4.1-5.4) x10^6/uL Hgb (12.0-16.0) g/dL Hct (35-47) % MCV (78-100) fL MCH (26-32) pg MCHC (32-36) g/dL RDW (11.5-14.0) % Plt Count (150-450) x10^3/uL MPV (7.5-11.0) fL Gran % (36.0-66.0) % Immature Gran % (Auto) (0.00-0.4) % Nucleat RBC Rel Count (0.00-0.1) % Eos # (Auto) (0-0.5) x10^3/uL Immature Gran # (Auto) (0.00-0.03) x10^3u/L Absolute Lymphs (auto) (1.0-4.6) x10^3/uL Absolute Monos (auto) (0.0-1.3) x10^3/uL Absolute Nucleated RBC (0.00-0.01) x10^3u/L Lymphocytes % (24.0-44.0) % Monocytes % (0.0-12.0) % Eosinophils % (0.00-5.0) % Basophils % (0.0-0.4) % Absolute Granulocytes (1.4-6.9) x10^3/uL Basophils # (0-0.4) x10^3/uL Sodium 138 (137-145) mmol/L Potassium 4.6 (3.5-5.1) mmol/L Chloride 107 (98-107) mmol/L Carbon Dioxide 18 L (22-30) mmol/L Anion Gap 17.2 H (5-15) MEQ/L BUN 16 (7-17) mg/dL Creatinine 0.80 (0.52-1.04) mg/dL Estimated GFR > 60.0 ML/MIN Glucose 101 (74-106) mg/dL Calcium 9.3 (8.4-10.2) mg/dL Total Bilirubin 1.00 (0.2-1.3) mg/dL AST 25 (14-36) U/L ALT 22 (0-35) U/L Alkaline Phosphatase 79 (38-126) U/L Serum Total Protein 7.6 (6.3-8.2) g/dL Albumin 4.5 (3.5-5.0) g/dL Amylase 75 (30-110) U/L Lipase 42 (23-300) U/L Urine Color (Yellow) Urine Appearance (Clear) Urine pH (4.6-8.0) Ur Specific [place] (1.005-1.030) Urine Protein (Negative) Urine Glucose (UA) (Negative) mg/dL Urine Ketones (Negative) Urine Blood (Negative) Urine Nitrite (Negative) Urine Bilirubin (Negative) Urine Urobilinogen (0.2) mg/dL Ur Leukocyte Esterase (Negative) U Hyaline Cast (Auto) (0-2) /LPF Urine Microscopic RBC (0-5) /HPF Urine Microscopic WBC (0-5) /HPF Ur Epithelial Cells (None Seen) /HPF Urine Bacteria (None Seen) /HPF Urine Culture Reflexed (NO) Urine HCG, Qual NEGATIVE (NEGATIVE) Monoscreen NEGATIVE (NEGATIVE) Influenza Type A Ag (NEGATIVE) Influenza Type B Ag (NEGATIVE) RSV (PCR) (NEGATIVE) SARS-CoV-2 (PCR) (NEGATIVE) Group A Strep Antibody (NEGATIVE) 12/10/22 Range/Units 11:00 WBC 12.4 H (4.0-10.5) x10^3/uL RBC 5.12 (4.1-5.4) x10^6/uL Hgb 15.2 (12.0-16.0) g/dL Hct 45.0 (35-47) % MCV 87.9 (78-100) fL MCH 29.7 (26-32) pg MCHC 33.8 (32-36) g/dL RDW 11.9 (11.5-14.0) % Plt Count 289 (150-450) x10^3/uL MPV 10.1 (7.5-11.0) fL Gran % 89.7 H (36.0-66.0) % Immature Gran % (Auto) 0.4 (0.00-0.4) % Nucleat RBC Rel Count 0.0 (0.00-0.1) % Eos # (Auto) 0.05 (0-0.5) x10^3/uL Immature Gran # (Auto) 0.05 H (0.00-0.03) x10^3u/L Absolute Lymphs (auto) 0.81 L (1.0-4.6) x10^3/uL Absolute Monos (auto) 0.31 (0.0-1.3) x10^3/uL Absolute Nucleated RBC 0.00 (0.00-0.01) x10^3u/L Lymphocytes % 6.5 L (24.0-44.0) % Monocytes % 2.5 (0.0-12.0) % Eosinophils % 0.4 (0.00-5.0) % Basophils % 0.5 (0.0-0.4) % Absolute Granulocytes 11.09 H (1.4-6.9) x10^3/uL Basophils # 0.06 (0-0.4) x10^3/uL Sodium (137-145) mmol/L Potassium (3.5-5.1) mmol/L Chloride (98-107) mmol/L Carbon Dioxide (22-30) mmol/L Anion Gap (5-15) MEQ/L BUN (7-17) mg/dL Creatinine (0.52-1.04) mg/dL Estimated GFR ML/MIN Glucose (74-106) mg/dL Calcium (8.4-10.2) mg/dL Total Bilirubin (0.2-1.3) mg/dL AST (14-36) U/L ALT (0-35) U/L Alkaline Phosphatase (38-126) U/L Serum Total Protein (6.3-8.2) g/dL Albumin (3.5-5.0) g/dL Amylase (30-110) U/L Lipase (23-300) U/L Urine Color (Yellow) Urine Appearance (Clear) Urine pH (4.6-8.0) Ur Specific [place] (1.005-1.030) Urine Protein (Negative) Urine Glucose (UA) (Negative) mg/dL Urine Ketones (Negative) Urine Blood (Negative) Urine Nitrite (Negative) Urine Bilirubin (Negative) Urine Urobilinogen (0.2) mg/dL Ur Leukocyte Esterase (Negative) U Hyaline Cast (Auto) (0-2) /LPF Urine Microscopic RBC (0-5) /HPF Urine Microscopic WBC (0-5) /HPF Ur Epithelial Cells (None Seen) /HPF Urine Bacteria (None Seen) /HPF Urine Culture Reflexed (NO) Urine HCG, Qual (NEGATIVE) Monoscreen (NEGATIVE) Influenza Type A Ag (NEGATIVE) Influenza Type B Ag (NEGATIVE) RSV (PCR) (NEGATIVE) SARS-CoV-2 (PCR) (NEGATIVE) Group A Strep Antibody (NEGATIVE) - Progress Progress: improved Progress Note: 12/10/22 13:00 CT scan of the abdomen pelvis without contrast was interpreted by the radiologist and I reviewed the impression. It is an unremarkable noncontrasted CT scan of the abdomen and pelvis. This patient's medical issue is 1 of moderate complexity. The level complexity in the work-up performed is based on review of the patient's past medical history, review of the patient's medication list, review the patient's drug allergy list, history of present illness, and physical findings on examination. The work-up of this patient includes placement of intravenous line, infusion of a liter of normal saline solution, infusion of Zofran and Dilaudid intravenously, CBC, CMP, amylase, lipase, flu swabs and strep swabs. We also checked for mono. We performed a CAT scan of the abdomen pelvis with the above- stated findings. I interpreted the results of the work-up except for the CT scan of the abdomen pelvis. This patient has mild dehydration and mild urinary tract infection. She may also have a viral illness. We will infuse an additional 500 mL normal saline and provide the patient with a single dose of 1 g Rocephin intravenously and then discharge the patient home and remotely send a prescription for Keflex and Zofran ODT 4 mg to her pharmacy. Counseled pt/family regarding: lab results, diagnosis, need for follow-up, rad results Medical Desision Making - Independent Historian Additional History obtained from: Spouse - Diagnostic Testing Diagnostic test were ordered, analyzed, and reviewed by me: Yes Radiological Interpretation: Reviewed by me, Teleradiologist Report - Risk of complications The pt has a mod risk of morbidity or mortality based on: Need for prescription drug management - Departure Departure Disposition: Home Clinical Impression: Viral illness, UTI (urinary tract infection), Mild dehydration Condition: Stable Critical Care Time: No Referrals: ANNALISA MARQUEZ DO [Primary Care Provider] - Follow up/PCP as directed Additional Instructions: Drink plenty of clear liquids before advancing your diet. Take your antibiotics as prescribed. Follow-up with your primary care provider for further evaluation and management. Prescriptions: Ondansetron ODT 4 MG [Zofran Odt 4 mg] 4 mg PO Q6H PRN PRN #10 tablet PRN Reason: Vomiting Cephalexin Mh 500 mg [Keflex 500 mg] 500 mg PO TID #21 cap
[2022-12-10] MEDS ORDERED: Zofran 4 MG/2 ML VIAL IV ONE (11:08)
[2022-12-10] MEDS ORDERED: Sodium Chloride 0.9% 1000 ML 1,000 ML IV STA (11:08)
[2022-12-10] MEDS ORDERED: Zofran 4 MG/2 ML VIAL ONE (11:15)
[2022-12-10] MEDS ORDERED: Sodium Chloride 0.9% 1000 ML 1,000 ML ONE (11:15)
[2022-12-10 11:19] LABS: Absolute Neutrophil Ct (ANC) 11.09 x10^3/uL (1.4-6.9); BASOPHIL % 0.5 % (0.0-0.4); Basophil (Absolute #) 0.06 x10^3/uL (0-0.4); Eosinophil % 0.4 % (0.00-5.0); Eosinophil (Absolute #) 0.05 x10^3/uL (0-0.5); Hemoglobin 15.2 g/dL (12.0-16.0); IMMATURE GRAN # 0.05 x10^3u/L (0.00-0.03); IMMATURE GRAN % 0.4 % (0.00-0.4); Lymphocyte (Absolute #) 0.81 x10^3/uL (1.0-4.6); Lymphocytes % 6.5 % (24.0-44.0); Mean Cell Volume 87.9 fL (78-100); Mean Corpuscular Hemoglobin 29.7 pg (26-32); Mean Corpuscular Hgb Concent. 33.8 g/dL (32-36); Mean Platelet Volume 10.1 fL (7.5-11.0); Monocyte (Absolute #) 0.31 x10^3/uL (0.0-1.3); Monocytes % 2.5 % (0.0-12.0); Neutrophil % 89.7 % (36.0-66.0); Platelet Count 289 x10^3/uL (150-450); Red Blood Count 5.12 x10^6/uL (4.1-5.4); Red Cell Distribution Width 11.9 % (11.5-14.0); White Blood Count 12.4 x10^3/uL (4.0-10.5)
[2022-12-10] MEDS ORDERED: Hydromorphone 1 mg/ml Injection IV ONE (11:20)
[2022-12-10 11:22] LABS: HCG URINE TEST NEGATIVE (NEGATIVE)
[2022-12-10 11:26] LABS: Appearance Cloudy (Clear); Bacteria Many /HPF (None Seen); Bilirubin Negative (Negative); Blood Small (Negative); Epithelial Cells Moderate /HPF (None Seen); Glucose, Urine Negative (Negative); Hyaline Casts NONE SEEN /LPF (0-2); Ketones 40 (Negative); Leukocyte Esterase Trace (Negative); Nitrite Negative (Negative); Ph 5.5 (4.6-8.0); Protein,Urine Dip Trace (Negative); Specific Gravity >=1.030 (1.005-1.030); Urobilinogen 0.2 mg/dL (0.2)
[2022-12-10 11:27] LABS: ALBUMIN 4.5 g/dL (3.5-5.0); ALKALINE PHOSPHATASE 79 U/L (38-126); AMYLASE 75 U/L (30-110); ANION GAP 17.2 MEQ/L (5-15); BLOOD UREA NITROGEN 16 mg/dL (7-17); CHLORIDE 107 mmol/L (98-107); Calcium 9.3 mg/dL (8.4-10.2); Carbon Dioxide 18 mmol/L (22-30); EST GLOMERULAR FILTRATION RATE > 60.0 ML/MIN; Glucose 101 mg/dL (74-106); LIPASE 42 U/L (23-300); Potassium 4.6 mmol/L (3.5-5.1); SGOT/AST 25 U/L (14-36); SGPT/ALT 22 U/L (0-35); SODIUM 138 mmol/L (137-145); Total Protein 7.6 g/dL (6.3-8.2)
[2022-12-10 11:29] LABS: ADD URINE CULTURE? YES (NO)
[2022-12-10] MEDS ORDERED: Hydromorphone 1 mg/ml Injection ONE (11:34)
[2022-12-10 12:43] LABS: INFLUENZA A NEGATIVE (NEGATIVE); INFLUENZA B NEGATIVE (NEGATIVE); RESPIRATORY SYNCTIAL VIRUS NEGATIVE (NEGATIVE); SARS-CoV-2 Xpert Express NEGATIVE (NEGATIVE)
--- NOTE | 2022-12-10 12:45 | XRAY ---
CLINICAL HISTORY:Generalized COMPARISON:None. TECHNIQUE:CT scan of the abdomen and pelvis without intravenous contrast administration. FINDINGS: The liver is of average size, with regular contour, and homogeneous texture with no focal lesion that could be detected on a non-contrast basis. No intra hepatic biliary radical dilatation. The GB appears unremarkable. The spleen is of average size and shape with homogeneous parenchyma and no focal lesion could be noted on a non-contrast basis. A few tiny calcific foci are seen scattered within its parenchyma. Both kidneys are of normal size, shape, and parenchymal thickness with no stones, back pressure changes, or space-occupying lesions on a non-contrast basis. The other retroperitoneal structures including the pancreas and adrenal glands are grossly within normal limits. No significant lymph john enlargement or ascetic fluid collection. The uterus, both adnexa and ischiorectal fossae show normal CT appearance. Normal filling of the urinary bladder with no stones, masses, or diverticula. Bone window settings showed no evidence of fractures or destructive lesions. Lung window settings showed a normal appearance of both basal lung segments. IMPRESSION: 1. Limited organ parenchymal evaluation within the limitations of non-contrast study. 2. No acute intra-abdominal abnormality was seen. 3. Few splenic calcific foci. 4. Otherwise, unremarkable non-contrast CT of the abdomen and pelvis. Electronically Signed by: Geoffrey Wei MD. (12/10/2022 11:43:37 EQUIPMENT RECORDS SUPERVISOR)
[2022-12-10] MEDS ORDERED: ROCEPHIN 1 Gm-D5w 50 ml Bag** 1 G/50 ML IVPB IV STA (13:06)
[2022-12-10] MEDS ORDERED: Sodium Chloride 0.9% 500 ML 500 ML IV ONE ×2 (13:06→13:09)
[2022-12-10 13:09] VITALS: O2SAT 97
[2022-12-10] MEDS ORDERED: ROCEPHIN 1 Gm-D5w 50 ml Bag** 1 G/50 ML IVPB IV ONE (13:09)
[2022-12-10 13:26] VITALS: BP 129/78; PULSE 107; RESP 18
== END 2022-12-10 14:09 | disposition home or self-care (01) ==
LOC: ED 10:11
DX: B34.9 Viral infection, unspecified (principal); N39.0 Urinary tract infection, site not specified; E86.0 Dehydration; R11.2 Nausea with vomiting, unspecified; R19.7 Diarrhea, unspecified; R10.84 Generalized abdominal pain; Z28.310 Unvaccinated for COVID-19
CPT/HCPCS: 0241U; 36000; 36415; 74176; 80053; 81001; 81025; 82150; 83690; 85025; 86308; 87077; 87086; 87186; 87651; 96360; 96365; 96374; 96375; 99284; J0696; J1170; J2405

== ENCOUNTER 2024-09-13 20:31 | Emergency (ER) | payer OTHER ==
--- NOTE | 2024-09-13 20:39 | ERPHSYRPT ---
- History of Present Illness Time Seen by Provider: 09/13/24 20:39 Source: patient, family Exam Limitations: no limitations Physician History: This is a 24-year-old white female patient who on 09/12/2024 was out in the [place]. Yesterday morning she noticed rash with some blistering and itching which worsened over yesterday and this morning. She has not taken anything to help resolve her symptoms. She has no shortness of breath or breathing issues. Quality: itchy Severity: moderate Location: extremities (Bilateral buttock creases, bilateral upper anterior/posterior extremity rash) Possible Causes: poison cam Associated Symptoms: blisters (Mild blistering in the sites), change in skin texture Allergies/Adverse Reactions: No Known Drug Allergies Allergy (Verified 09/13/24 21:07) Home Medications: norethindrone ac-eth estradioL [Microgestin 21 1-20 Tablet] 1 tab PO DAILY 06/25/22 [History] Hx Tetanus, Diphtheria Vaccination/Date Given: Yes Hx Influenza Vaccination/Date Given: No Hx Pneumococcal Vaccination/Date Given: No Travel Risk - International Travel Have you traveled outside of the country in past 3 weeks: No - Emerging Infectious Disease Are you exhibiting symptoms associated with any current EIDs: No - Review of Systems Constitutional: No Symptoms Eyes: No Symptoms Ears, Nose, & Throat: No Symptoms Respiratory: No Symptoms Cardiac: No Symptoms Abdominal/Gastrointestinal: No Symptoms Genitourinary Symptoms: No Symptoms Musculoskeletal: No Symptoms Skin: Rash ([place], raised mild eschar and areas of blistering in the buttock creases bilaterally and upper, bilateral legs posterior and anterior skin) Neurological: No Symptoms Psychological: No Symptoms Endocrine: No Symptoms Hematologic/Lymphatic: No Symptoms Immunological/Allergic: No Symptoms All Other Systems: Reviewed and Negative - Past Medical History Pertinent Past Medical History: Yes Neurological History: Migraines ENT History: No Pertinent History Cardiac History: No Pertinent History Respiratory History: No Pertinent History Endocrine Medical History: No Pertinent History Musculoskeletal History: No Pertinent History GI Medical History: No Pertinent History History: No Pertinent History Psycho-Social History: No Pertinent History Female Reproductive Disorders: No Pertinent History - Past Surgical History Past Surgical History: Yes Neuro Surgical History: No Pertinent History Cardiac: No Pertinent History Respiratory: No Pertinent History Gastrointestinal: No Pertinent History Genitourinary: No Pertinent History Musculoskeletal: No Pertinent History Female Surgical History: No Pertinent History Other Surgical History: ingrown toe nail and wisdom teeth extraction - Social History Smoking Status: Never smoker Exposure to second hand smoke: No Drug Use: none Patient Lives Alone: No - Nursing Vital Signs Nursing Vital Signs: Initial Vital Signs Temperature 98.0 F 09/13/24 20:46 Pulse Rate 89 09/13/24 20:46 Respiratory Rate 16 09/13/24 20:46 Blood Pressure 128/88 09/13/24 20:46 O2 Sat by Pulse Oximetry 98 09/13/24 20:46 Pain Scale Pain Intensity 6 - Physical Exam General Appearance: no apparent distress, alert, anxiety Eye Exam: PERRL/EOMI, eyes nml inspection Ears, Nose, Throat Exam: normal ENT inspection, moist mucous membranes Neck Exam: normal inspection, non-tender, supple, full range of motion Respiratory Exam: airway intact, No chest tenderness, No respiratory distress Gastrointestinal/Abdomen Exam: No tenderness Pelvic Exam: not done Rectal Exam: not done Back Exam: normal inspection, normal range of motion, No CVA tenderness, No vertebral tenderness Extremity Exam: normal inspection, normal range of motion, pelvis stable, other (Red raised patches of rash that itch and have mild blistering present. They are in the area of the buttock creases bilaterally and bilateral upper legs anteriorly and posteriorly ) Neurologic Exam: alert, oriented x 3, cooperative, nurse receptionist II-XII nml as tested, nml cerebellar function, nml station & gait, sensation nml Skin Exam: rash (See above extremity section) Lymphatic Exam: No adenopathy SpO2 Interpretation: normal O2 Delivery: Room Air - Course Nursing assessment & vital signs reviewed: Yes Ordered Tests: Medication Summary Generic Name Dose Route Start Last Admin Trade Name Freq PRN Reason Stop Dose Admin Prednisone 40 mg 09/13/24 21:28 Prednisone 20 Mg Tablet PO 09/13/24 21:29 STAT ONE Discontinued Medications Generic Name Dose Route Start Last Admin Trade Name Freq PRN Reason Stop Dose Admin Diphenhydramine HCl 50 mg 09/13/24 21:27 Diphenhydramine Hcl 25 Mg Capsule PO 09/13/24 21:28 STAT ONE Famotidine 40 mg 09/13/24 21:27 Famotidine 20 Mg Tablet PO 09/13/24 21:28 STAT ONE - Progress Progress: unchanged Progress Note: 09/13/24 21:33 My medical decision making and the assignment of low complexity to this patient's medical issue today is based on review of the patient's past medical history, review the patient's medication list, reviewed patient drug allergy list, history of present illness and physical findings on examination. The workup in this patient does not necessitate laboratory radiographic studies. Differential diagnosis includes but is not limited to contact dermatitis, hives, allergic reaction, cellulitis Counseled pt/family regarding: diagnosis, need for follow-up Medical Desision Making - Diagnostic Testing Diagnostic test were ordered, analyzed, and reviewed by me: No - Risk of complications Minimal Risk: Minimal risk of morbidity The pt has a mod risk of morbidity or mortality based on: Need for prescription drug management - Departure Departure Disposition: Home Clinical Impression: Contact dermatitis Condition: Stable Critical Care Time: No Referrals: ANNALISA MARQUEZ DO [Primary Care Provider, [facility]] - Follow up/PCP as directed Additional Instructions: Keep the rash sites clean daily with soap and water. Make sure they are dry. Take your medication as prescribed. May soak in oatmeal bath for relief of itching. Call your primary care provider tomorrow, 09/14/2024, to make arrangements for follow-up appointment to be seen in the next 3 to 5 days and follow-up. Make sure you take Benadryl 25 mg 3 times a day for 5 days. Prescriptions: Prednisone 10 mg [Deltasone 10 mg] 10 mg PO TID #12 tablet Famotidine 20 mg [Pepcid 20 MG] 20 mg PO DAILY #10 tablet
[2024-09-13 20:48] VITALS: TEMP 98
[2024-09-13] MEDS ORDERED: DELTASONE 20 MG ONE (21:35)
[2024-09-13] MEDS ORDERED: Pepcid 20 MG ONE (21:35)
[2024-09-13] MEDS: DELTASONE 20 MG PO ONE (21:36)
[2024-09-13] MEDS: Pepcid 20 MG PO ONE (21:36)
[2024-09-13] MEDS ORDERED: BENADRYL 25 MG CAPSULE ONE (21:37)
[2024-09-13] MEDS: BENADRYL 25 MG CAPSULE PO ONE (21:40)
[2024-09-13 21:47] VITALS: BP 124/78; PULSE 82; RESP 18; O2SAT 100
== END 2024-09-13 21:47 | disposition home or self-care (01) ==
LOC: ED 20:31
DX: L25.9 Unspecified contact dermatitis, unspecified cause (principal); Z79.52 Long term (current) use of systemic steroids; Z79.899 Other long term (current) drug therapy
CPT/HCPCS: 99282; 99283; A9270-GY